=== PATIENT | male | born 1975 | race Caucasian/White ===

== ENCOUNTER 2017-03-25 03:41 | Emergency (ER) | payer MEDICAID | END 2017-03-25 08:35 | disposition home or self-care (01) | LOC: FTE 03:41 | DX: K64.9 Unspecified hemorrhoids (principal) | CPT/HCPCS: 99283; Z7502 ==

== ENCOUNTER 2017-03-26 21:42 | Inpatient (IN) | payer MEDICAID ==
[2017-03-27 04:30] LABS: ADD MAN DIFF? NO
[2017-03-27 04:33] LABS: BASOPHIL # 0.1 10^3/ul (0.0-0.1); BASOPHILS % 0.4 % (0.0-2.0); EOSINOPHILS # 0.2 10^3/ul (0.0-0.5); EOSINOPHILS % 1.2 % (0.0-7.0); HEMOGLOBIN 16.4 g/dl (14.0-18.0); LYMPHOCYTES # 1.8 10^3/ul (0.8-2.9); LYMPHOCYTES % 13.4 % (15.0-51.0); MEAN CORPUSCULAR HEMOGLOBIN 31.4 pg (29.0-33.0); MEAN CORPUSCULAR HGB CONC 34.9 g/dl (32.0-37.0); MEAN PLATELET VOLUME 10.3 fl (7.4-10.4); MONOCYTE # 1.3 10^3/ul (0.3-0.9); MONOCYTES % 9.6 % (0.0-11.0); NEUTROPHIL # 10.1 10^3/ul (1.6-7.5); PLATELET COUNT 306 10^3/UL (140-415); RED BLOOD COUNT 5.22 10^6/ul (4.70-6.10); RED CELL DISTRIBUTION WIDTH 11.4 % (11.5-14.5)
[2017-03-27 04:33] LABS: WHITE BLOOD COUNT 13.4 10^3/ul (4.8-10.8)
[2017-03-27] MEDS: morphine 4 MG/ML VIAL IV (04:42)
[2017-03-27] MEDS: ONDANSETRON 4 MG INJ IV ×3 (04:42→23:13)
[2017-03-27] MEDS: SOD CHLORIDE 0.9% 1,000 ML IV (04:42)
[2017-03-27 04:48] LABS: ALANINE AMINOTRANSFERASE 147 IU/L (13-69); ALBUMIN 4.9 g/dl (3.3-4.9); ALBUMIN/GLOBULIN RATIO 1.25; ALKALINE PHOSPHATASE 180 IU/L (42-121); ANION GAP 18 (8-16); ASPARTATE AMINO TRANSFERASE 123 IU/L (15-46); BILIRUBIN,INDIRECT 0.4 mg/dl (0-1.1); BILIRUBIN,TOTAL 0.4 mg/dl (0.2-1.3); BLOOD UREA NITROGEN 7 mg/dl (7-20); CALCIUM 10.1 mg/dl (8.4-10.2); CARBON DIOXIDE 28 mmol/L (21-31); CHLORIDE 100 mmol/L (97-110); CREATININE 0.86 mg/dl (0.61-1.24); GLUCOSE 110 mg/dl (70-220); LIPASE 55 U/L (23-300); POTASSIUM 4.3 mmol/L (3.5-5.1); SODIUM 142 mmol/L (135-144); TOTAL PROTEIN 8.8 g/dl (6.1-8.1)
[2017-03-27] MEDS: IOHEXOL 300MG/ML 150 ML BTL (05:48)
[2017-03-27] MEDS: SOD CHLORIDE 0.9% 100 ML (05:48)
[2017-03-27] MEDS: PIPER-TAZO 3.375 GM IV (PMX) 100 ML IVPB (07:49)
[2017-03-27] MEDS: HYDROmorphONE 1 MG/ML SYG IV (07:49)
[2017-03-27] MEDS ORDERED: ACETAMINOPHEN 325 MG TAB PO ×2 (08:00→09:30)
[2017-03-27] MEDS ORDERED: DOCUSATE SODIUM 100 MG CAP PO (09:30)
[2017-03-27] MEDS ORDERED: MAGNESIUM HYDROXIDE 30ML CUP PO (09:30)
[2017-03-27] MEDS ORDERED: NITROGLYCERIN (SL) 0.4 MG TAB SL (09:30)
[2017-03-27] MEDS ORDERED: ALBUTEROL/IPRATROPIUM (NEB) 3 ML AMP HHN (09:30)
[2017-03-27] MEDS ORDERED: NA PHOSPHATE/BIPHOS 133 ML ENEMA PR (09:30)
[2017-03-27] MEDS ORDERED: NACL 0.9% 3 ML SYG IV (09:30)
[2017-03-27] MEDS ORDERED: LORAZEPAM 2 MG INJ IV (09:30)
[2017-03-27] MEDS ORDERED: hydrALAzine 20 MG INJ IV (09:30)
[2017-03-27] MEDS ORDERED: HYDROCODONE/APAP (5/325) TAB PO ×2 (09:30→10:00)
[2017-03-27] MEDS ORDERED: morphine 2 MG INJ IV (10:00)
[2017-03-27] MEDS ORDERED: ONDANSETRON 4 MG INJ IV (10:00)
[2017-03-27] MEDS ORDERED: MIDAZOLAM 1 MG/ML 2 ML INJ (10:22)
[2017-03-27] MEDS ORDERED: FENTAnyl 50 MCG/ML VIAL (10:22)
[2017-03-27] MEDS ORDERED: LIDOCAINE 1% (MPF) 30 ML INJ (10:31)
[2017-03-27] MEDS ORDERED: BUPIVACAINE 0.25% (MPF) 30 ML INJ (10:32)
[2017-03-27] MEDS ORDERED: LIDOCAINE 2% (SDV) 5 ML INJ (10:46)
[2017-03-27] MEDS ORDERED: CEFAZOLIN 1 GM INJ (10:46)
[2017-03-27] MEDS ORDERED: PROPOFOL 20 ML (10:46)
[2017-03-27] MEDS ORDERED: ONDANSETRON 4 MG INJ (10:48)
[2017-03-27] MEDS: LIDOCAINE 1%/EPI 30 ML INJ (10:53)
[2017-03-27] MEDS ORDERED: MEPERIDINE 100 MG INJ (10:57)
[2017-03-27] MEDS ORDERED: PIPER-TAZO 3.375 GM IV (PMX) 100 ML IVPB (12:00)
[2017-03-27] MEDS: D5W-0.45 NACL + KCL 20 MEQ 1,000 ML IV (12:14)
[2017-03-27] MEDS: CIPROFLOXACIN 400MG/D5W 200 ML IVPB ×2 (12:15→23:06)
[2017-03-27] MEDS: metroNIDAZOLE 500 MG/NS (PMX) 100 ML IVPB ×2 (13:19→20:10)
[2017-03-27 13:50] LABS: HAAIG REFLEX REFLEX FILED
[2017-03-27 14:38] LABS: ADD UMIC NO; UR ASCORBIC ACID NEGATIVE (NEGATIVE); UR BILIRUBIN (Dip) NEGATIVE (NEGATIVE); UR BLOOD (Dip) NEGATIVE (NEGATIVE); UR CLARITY CLEAR (CLEAR); UR COLOR YELLOW (YELLOW); UR GLUCOSE (Dip) NEGATIVE (NEGATIVE); UR KETONES (Dip) NEGATIVE (NEGATIVE); UR LEUKOCYTE ESTERASE (Dip) NEGATIVE Leu/ul (NEGATIVE); UR NITRITE (Dip) NEGATIVE (NEGATIVE); UR SPECIFIC GRAVITY (Dip) 1.028 (1.003-1.030); UR TOTAL PROTEIN (Dip) NEGATIVE (NEGATIVE); UR UROBILINOGEN (Dip) NEGATIVE (NEGATIVE)
[2017-03-27 14:43] LABS: HEPATITIS B SURFACE ANTIGEN NEGATIVE (NEGATIVE)
[2017-03-27 15:01] LABS: HEPATITIS B CORE ANTIBODY NEGATIVE (NEGATIVE); HEPATITIS C VIRAL ANTIBODY NEGATIVE (NEGATIVE)
[2017-03-27] MEDS: ACETAMINOPHEN 325 MG TAB PO (16:27)
[2017-03-27] MEDS ORDERED: HEPARIN 5,000 UNIT/0.5 ML VIAL SC (21:00)
[2017-03-27] MEDS: morphine 2 MG INJ IV (23:14)
[2017-03-28] MEDS: metroNIDAZOLE 500 MG/NS (PMX) 100 ML IVPB (03:54)
[2017-03-28] MEDS: morphine 2 MG INJ IV (04:04)
[2017-03-28] MEDS: ONDANSETRON 4 MG INJ IV (04:04)
[2017-03-28] MEDS: PANTOPRAZOLE (EC) 40 MG TAB PO (06:02)
[2017-03-28 06:19] LABS: ADD MAN DIFF? NO
[2017-03-28 06:24] LABS: BASOPHIL # 0.1 10^3/ul (0.0-0.1); BASOPHILS % 0.4 % (0.0-2.0); EOSINOPHILS # 0.2 10^3/ul (0.0-0.5); EOSINOPHILS % 1.4 % (0.0-7.0); HEMATOCRIT 43.3 % (42.0-52.0); HEMOGLOBIN 14.7 g/dl (14.0-18.0); LYMPHOCYTES # 1.8 10^3/ul (0.8-2.9); LYMPHOCYTES % 14.5 % (15.0-51.0); MEAN CORPUSCULAR HEMOGLOBIN 31.1 pg (29.0-33.0); MEAN CORPUSCULAR HGB CONC 33.9 g/dl (32.0-37.0); MEAN CORPUSCULAR VOLUME 91.5 fl (82.0-101.0); MEAN PLATELET VOLUME 10.4 fl (7.4-10.4); MONOCYTE # 1.3 10^3/ul (0.3-0.9); MONOCYTES % 10.5 % (0.0-11.0); NEUTROPHIL # 8.8 10^3/ul (1.6-7.5); NEUTROPHILS % 72.8 % (39.0-77.0); PLATELET COUNT 275 10^3/UL (140-415); RED BLOOD COUNT 4.73 10^6/ul (4.70-6.10); RED CELL DISTRIBUTION WIDTH 11.6 % (11.5-14.5)
[2017-03-28 06:24] LABS: WHITE BLOOD COUNT 12.1 10^3/ul (4.8-10.8)
[2017-03-28 06:47] LABS: ALANINE AMINOTRANSFERASE 166 IU/L (13-69); ALBUMIN 3.7 g/dl (3.3-4.9); ALKALINE PHOSPHATASE 176 IU/L (42-121); ASPARTATE AMINO TRANSFERASE 91 IU/L (15-46); BILIRUBIN,INDIRECT 0.5 mg/dl (0-1.1); BILIRUBIN,TOTAL 0.5 mg/dl (0.2-1.3); TOTAL PROTEIN 6.7 g/dl (6.1-8.1)
[2017-03-28 07:17] LABS: ANION GAP 11 (8-16); BLOOD UREA NITROGEN 7 mg/dl (7-20); CALCIUM 8.9 mg/dl (8.4-10.2); CARBON DIOXIDE 30 mmol/L (21-31); CHLORIDE 100 mmol/L (97-110); CHOLESTEROL 126 mg/dl (100-200); CREATININE 0.87 mg/dl (0.61-1.24); GLUCOSE 114 mg/dl (70-220); HDL CHOLESTEROL 42 mg/dl (27-67); LDL CHOLESTEROL,CALCULATED 65 mg/dl; POTASSIUM 4.4 mmol/L (3.5-5.1); SODIUM 137 mmol/L (135-144); TRIGLYCERIDES 95 mg/dl (0-149)
[2017-03-28] MEDS: ENOXAPARIN 40 MG/0.4 ML SYG SC (07:24)
[2017-03-28 07:34] LABS: HEMOGLOBIN A1C 5.2 % (0-5.9)
[2017-03-28] MEDS: ACETAMINOPHEN 325 MG TAB PO (10:32)
[2017-03-28] MEDS ORDERED: morphine LIQ (10 MG/5 ML) CUP PO (13:30)
[2017-03-28] MEDS ORDERED: CIPROFLOXACIN 500 MG TAB PO (18:00)
[2017-03-28] MEDS ORDERED: metroNIDAZOLE 500 MG TAB PO (22:00)
== END 2017-03-28 20:20 | disposition home or self-care (01) | DRG 349 ==
LOC: FTE 21:42 → MS2 03-28 10:20 → MS3 03-27 07:33
PROC: 0D9QXZZ Drainage of Anus, External Approach (ICD-10-PCS; principal; 2017-03-27 10:11)
DX: K61.0 Anal abscess (principal); R50.82 Postprocedural fever; R74.0 Nonspecific elevation of levels of transaminase and lactic acid dehydrogenase [LDH]
CPT/HCPCS: 36415; 74177; 76870; 80048; 80053; 80061; 80076; 81003; 83036; 83690; 83735; 84100; 84439; 84443; 85025; 86704; 86709; 86803; 87040; 87340; 96361; 96374; 96375; 96376; 99285-25